=== PATIENT | female | born 1955 | race Caucasian/White ===

== ENCOUNTER 2017-10-13 20:13 | Emergency (ER) | payer SELFPAY ==
[~2017-10-13] VITALS: Ht 167.6 cm; Wt 72.6 kg
--- NOTE | 2017-10-13 20:35 | NUR ---
DR. NERI IS AT THE BEDSIDE SPEAKING TO THE PT.
--- NOTE | 2017-10-13 20:43 | NUR ---
CALLED LAB FOR BLOOD DRAW.
--- NOTE | 2017-10-13 20:56 | NUR ---
CXR NOW IN PROGRESS
--- NOTE | 2017-10-13 20:56 | NUR ---
BLOOD DRAW IN PROGRESS AT THE BEDSIDE. URINE SAMPLE OBTAINED.
[2017-10-13 21:00] LABS: BASOPHILS # (AUTO) 0.1 /CMM (0.0-0.2); BASOPHILS % (AUTO) 0.9 % (0.0-2.0); EOSINOPHILS # (AUTO) 0.2 /CMM (0.0-0.7); HEMATOCRIT 39 % (33-45); HEMOGLOBIN 13.6 g/dL (11.5-14.8); LYMPHOCYTES # (AUTO) 2.4 /CMM (0.8-4.8); LYMPHOCYTES % (AUTO) 31.3 % (20.0-44.0); MEAN CORPUSCULAR HEMOGLOBIN 32 PG (26.0-33.0); MEAN CORPUSCULAR HGB CONC 35 g/dl (31.0-36.0); MEAN CORPUSCULAR VOLUME 92 fL (82-100); MONOCYTES # (AUTO) 0.5 /CMM (0.1-1.30); MONOCYTES % (AUTO) 7.1 % (2.0-12.0); NEUTROPHILS # (AUTO) 4.4 /CMM (1.8-8.9); NEUTROPHILS % (AUTO) 58.7 % (43.0-81.0); PLATELET COUNT (AUTO) 303 /CMM (150-450); RDW COEFFICIENT OF VARIATION 12.1 (11.5-15.0); RED BLOOD CELL COUNT(AUTO) 4.26 MIL/uL (4.0-5.2); WHITE BLOOD COUNT (AUTO) 7.7 K/uL (4.3-11.0)
[2017-10-13 21:20] LABS: APPEARANCE,URINE Clear (CLEAR); BILIRUBIN,URINE Negative (NEGATIVE); BLOOD, URINE Negative Ery/uL (NEGATIVE); COLOR,URINE Yellow (YELLOW); KETONES,URINE Negative (NEGATIVE); LEUKOCYTE ESTERASE ,URINE Trace (NEGATIVE); NITRITE, URINE Negative (NEGATIVE); PROTEIN,URINE Negative (NEGATIVE); UGLUCOSE Negative (NEGATIVE); UROBILINOGEN,URINE 0.2 EU/dL (0.2)
[2017-10-13 21:21] LABS: INR 0.92 (0.85-1.15)
[2017-10-13 21:38] LABS: BACTERIA,URINE Rare /HPF (None Seen); RBC,URINE 0-2 /HPF (0-2); SQUAMOUS EPITHELIAL CELL,UR Few /HPF (None Seen); WBC,URINE 0-2 /HPF (0-3)
[2017-10-13 21:42] LABS: TROPONIN I < 0.017 ng/mL (0.00-0.056)
[2017-10-13 21:46] LABS: ALANINE AMINOTRANSFERASE 48 U/L (12-78); ALBUMIN 4.1 g/dL (3.4-5.0); ALKALINE PHOSPHATASE 111 U/L (46-116); ASPARTATE AMINOTRANSFERASE 22 U/L (15-37); BILIRUBIN,DIRECT 0.1 mg/dL (0.0-0.2); BILIRUBIN,TOTAL 0.7 mg/dL (0.2-1.0); CALCIUM, SERUM 8.9 mg/dL (8.5-10.1); CARBON DIOXIDE 29 mmol/L (21-32); CHLORIDE 103 mmol/L (98-107); CREATININE 0.9 mg/dL (0.6-1.3); GLUCOSE 104 mg/dL (74-106); POTASSIUM 3.5 mmol/L (3.5-5.1); SODIUM SERUM 141 mmol/L (136-145); TOTAL PROTEIN, SERUM 7.5 g/dL (6.4-8.2); UREA NITROGEN, BLOOD 15 mg/dL (7-18)
--- NOTE | 2017-10-13 21:55 | NUR ---
PT IS C/O HEADACHE WITH BLURRED VISION. OVERHEAD LIGHT WAS TURNED OFF AND MD NOTIFIED.
--- NOTE | 2017-10-13 22:40 | NUR ---
Patient discharged to home in stable condition. Written and verbal after care instructions given. Patient verbalizes understanding of instruction AND RX. PT'S SON IS DRIVING PT HOME. VSS. PT AMBULATED OUT WITH A STEADY GAIT. PT REC'D A COPY OF ALL LABS, IMAGING, AND EKG.
[2017-10-13 22:42] VITALS: BP 150/85
== END 2017-10-13 22:43 | disposition home or self-care (01) ==
LOC: ER 20:15
DX: R07.89 Other chest pain (principal); I10 Essential (primary) hypertension; Z86.19 Personal history of other infectious and parasitic diseases; Z88.1 Allergy status to other antibiotic agents; I34.1 Nonrheumatic mitral (valve) prolapse
CPT/HCPCS: 36415; 71045-TC; 80048-TC; 80076-TC; 81000-TC; 84484-TC; 85025-TC; 85730-TC; A4606; Z7610

== ENCOUNTER 2017-10-20 06:21 | Emergency (ER) | payer SELFPAY ==
[~2017-10-20] VITALS: Ht 167.6 cm; Wt 72.6 kg
--- NOTE | 2017-10-20 06:51 | NUR ---
62 YO MALE BB SELF. APTIENT IS ALERT AND ORIENTED X 3, C/O NAUSEA, GENERALIZED WEAKNESS ON AND OFF X 1 MONJTH. PATIENT AMBULATED TO ER BED, SKIN WARM AND DRY, RESP EVEN AND UNLABORED. PATIENT PLACED ON SHIFT COORDINATOR. AWAITING ORDERS FROM PROVIDER
[2017-10-20] MEDS ORDERED: IV NS 0.9% 500 ML BAG IV ONE (07:00)
--- NOTE | 2017-10-20 07:00 | NUR ---
STARTED A SALINE LOCK ON THE LAC G20, BLOOD DRAWN AND SENT TO LAB.
[2017-10-20 07:08] LABS: BASOPHILS % (AUTO) 0.5 % (0.0-2.0); EOSINOPHILS % (AUTO) 2.9 % (0.0-6.0); HEMATOCRIT 39 % (33-45); HEMOGLOBIN 13.8 g/dL (11.5-14.8); LYMPHOCYTES # (AUTO) 2.5 /CMM (0.8-4.8); LYMPHOCYTES % (AUTO) 43.5 % (20.0-44.0); MEAN CORPUSCULAR HGB CONC 35 g/dl (31.0-36.0); MEAN CORPUSCULAR VOLUME 92 fL (82-100); MONOCYTES # (AUTO) 0.5 /CMM (0.1-1.30); MONOCYTES % (AUTO) 9.2 % (2.0-12.0); NEUTROPHILS # (AUTO) 2.5 /CMM (1.8-8.9); NEUTROPHILS % (AUTO) 43.9 % (43.0-81.0); PLATELET COUNT (AUTO) 333 /CMM (150-450); RDW COEFFICIENT OF VARIATION 12.3 (11.5-15.0); RED BLOOD CELL COUNT(AUTO) 4.23 MIL/uL (4.0-5.2); WHITE BLOOD COUNT (AUTO) 5.6 K/uL (4.3-11.0)
[2017-10-20 07:25] LABS: BILIRUBIN,DIRECT 0.3 mg/dL (0.0-0.2); CALCIUM, SERUM 8.8 mg/dL (8.5-10.1); CREATININE 0.7 mg/dL (0.6-1.3); POTASSIUM 3.4 mmol/L (3.5-5.1); TOTAL PROTEIN, SERUM 7.6 g/dL (6.4-8.2)
--- NOTE | 2017-10-20 07:45 | NUR ---
PATIENT AMBULATES THE HALLWAY WITH STABLE GAIT. DR PAGAN MADE AWARE.
[2017-10-20 08:38] LABS: APPEARANCE,URINE SL CLOUDY (CLEAR); BILIRUBIN,URINE NEGATIVE (NEGATIVE); BLOOD, URINE NEGATIVE Ery/uL (NEGATIVE); COLOR,URINE YELLOW (YELLOW); KETONES,URINE NEGATIVE (NEGATIVE); LEUKOCYTE ESTERASE ,URINE 1+ (NEGATIVE); NITRITE, URINE NEGATIVE (NEGATIVE); PH,URINE 7.5 (5.0-8.0); PROTEIN,URINE NEGATIVE (NEGATIVE); UGLUCOSE NEGATIVE (NEGATIVE); UROBILINOGEN,URINE 0.2 EU/dL (0.2)
--- NOTE | 2017-10-20 08:58 | NUR ---
PATIENT AMBULATES THE HALLWAY WITH STABLE GAIT. VSS.
[2017-10-20 08:59] LABS: RBC,URINE 0-2 /HPF (0-2)
[2017-10-20 09:00] LABS: BACTERIA,URINE Rare /HPF (None Seen)
[2017-10-20 09:01] LABS: SQUAMOUS EPITHELIAL CELL,UR Moderate /HPF (None Seen)
[2017-10-20 09:02] VITALS: BP 130/80
--- NOTE | 2017-10-20 09:04 | NUR ---
IV removed. Catheter intact and site benign. Pressure and 4x4 applied to site. No bleeding noted.Patient discharged to home in stable condition. Written and verbal after care instructions given. Patient verbalizes understanding of instruction.
== END 2017-10-20 09:07 | disposition home or self-care (01) ==
LOC: ER 06:24
DX: R53.1 Weakness (principal); R11.0 Nausea; I10 Essential (primary) hypertension; Z88.1 Allergy status to other antibiotic agents
CPT/HCPCS: 36415; 80048-TC; 80076-TC; 81000-TC; 85025-TC; 87086-TC; 87186-TC; A4606; Z7610

== ENCOUNTER 2017-11-14 15:27 | Emergency (ER) | payer OTHER ==
[~2017-11-14] VITALS: Ht 167.6 cm; Wt 72.6 kg
[2017-11-14 15:27] VITALS: BP 139/77
[2017-11-14] MEDS ORDERED: diphenhydrAMINE HCL 25 MG CAPSULE ONE (16:22)
[2017-11-14] MEDS ORDERED: FAMOTIDINE (20 MG) 20 MG TABLET ONE (16:22)
[2017-11-14] MEDS ORDERED: diphenhydrAMINE HCL ELIX 25 MG/10 ML UDC PO ONE (16:30)
[2017-11-14] MEDS ORDERED: diphenhydrAMINE HCL 25 MG CAPSULE PO ONE (16:30)
[2017-11-14] MEDS ORDERED: FAMOTIDINE (20 MG) 20 MG TABLET PO ONE (16:30)
== END 2017-11-14 16:46 | disposition home or self-care (01) ==
LOC: ER 15:28
DX: Z77.098 Contact with and (suspected) exposure to other hazardous, chiefly nonmedicinal, chemicals (principal); I10 Essential (primary) hypertension; I34.1 Nonrheumatic mitral (valve) prolapse; G04.91 Myelitis, unspecified; Z88.1 Allergy status to other antibiotic agents; Z86.19 Personal history of other infectious and parasitic diseases
CPT/HCPCS: 99283; Q0163; Z7610; A4606

== ENCOUNTER 2019-04-11 17:26 | Emergency (ER) | payer BC, OTHER ==
[~2019-04-11] VITALS: Ht 167.6 cm; Wt 70.3 kg
[2019-04-11] MEDS ORDERED: IV NS 0.9% 1,000 ML BAG IV ONE (18:00)
[2019-04-11] MEDS ORDERED: ONDANSETRON HCL/PF 4 MG/2 ML VIAL ONE (18:01)
[2019-04-11 18:04] LABS: BASOPHILS % (AUTO) 0.8 % (0.0-2.0); EOSINOPHILS % (AUTO) 3.8 % (0.0-6.0); HEMATOCRIT 41 % (33-45); LYMPHOCYTES # (AUTO) 1.8 /CMM (0.8-4.8); LYMPHOCYTES % (AUTO) 37.2 % (20.0-44.0); MEAN CORPUSCULAR HGB CONC 34 g/dl (31.0-36.0); MEAN CORPUSCULAR VOLUME 97 fL (82-100); MONOCYTES # (AUTO) 0.3 /CMM (0.1-1.30); MONOCYTES % (AUTO) 7.3 % (2.0-12.0); NEUTROPHILS # (AUTO) 2.4 /CMM (1.8-8.9); NEUTROPHILS % (AUTO) 50.9 % (43.0-81.0); PLATELET COUNT (AUTO) 313 /CMM (150-450); RED BLOOD CELL COUNT(AUTO) 4.24 MIL/uL (4.0-5.2); WHITE BLOOD COUNT (AUTO) 4.8 K/uL (4.3-11.0)
[2019-04-11] MEDS: ONDANSETRON HCL/PF 4 MG/2 ML VIAL IVP ONE ×2 (18:04→18:30)
--- NOTE | 2019-04-11 18:05 | NUR ---
DIZZINESS, NAUSEA ABDOMINAL BLOATING SINCE STOPPING MS MEDS. "AUBAGIO" LAST FRIDAY. PT AAOX4, VSS. RR EVEN & UNLABORED. DENIES CP, SOB, WEAKNESS @ THIS TIME. PT SEEN & EVAL'D BY DR. LIN. REFUSED DANE @ THIS TIME, ERMD AWARE. WILL CONT TO MONITOR.
[2019-04-11 18:23] LABS: ALBUMIN 3.9 g/dL (3.4-5.0); BILIRUBIN,DIRECT 0.2 mg/dL (0.0-0.2); BILIRUBIN,TOTAL 1.2 mg/dL (0.2-1.0); CALCIUM, SERUM 8.2 mg/dL (8.5-10.1); CREATININE 0.9 mg/dL (0.6-1.3); POTASSIUM 3.5 mmol/L (3.5-5.1); TOTAL PROTEIN, SERUM 7.4 g/dL (6.4-8.2)
--- NOTE | 2019-04-11 18:30 | NUR ---
MEDICATED FOR NAUSEA. PT SOFÍA WELL.
[2019-04-11] MEDS ORDERED: KETOROLAC TROMETHAMINE INJ 30 MG/ML VIAL ONE (19:56)
[2019-04-11] MEDS ORDERED: KETOROLAC TROMETHAMINE INJ 30 MG/ML VIAL IV ONE (20:00)
[2019-04-11 20:38] VITALS: BP 146/67
--- NOTE | 2019-04-11 20:39 | NUR ---
Patient discharged to home in stable condition. Written and verbal after care instructions given. Patient verbalizes understanding of instruction. IV removed. Catheter intact and site benign. Pressure and 4x4 applied to site. No bleeding noted.
== END 2019-04-11 20:40 | disposition home or self-care (01) ==
LOC: ER 17:30
DX: R11.0 Nausea (principal); R42 Dizziness and giddiness; T45.0X5A Adverse effect of antiallergic and antiemetic drugs, initial encounter; G35 Multiple sclerosis; I10 Essential (primary) hypertension; I34.1 Nonrheumatic mitral (valve) prolapse; Z88.1 Allergy status to other antibiotic agents; Z88.5 Allergy status to narcotic agent; Y92.89 Other specified places as the place of occurrence of the external cause
CPT/HCPCS: 36415; 71045; 80048; 80076; 85025; 93005; 96361; 96374; 96375; 99284; J1885; J2405; J7030

== ENCOUNTER 2022-03-30 00:27 | Emergency (ER) | payer MEDICARE, BC ==
[~2022-03-30] VITALS: Ht 167.6 cm; Wt 74.4 kg
[2022-03-30 01:48] VITALS: BP 164/82
--- NOTE | 2022-03-30 02:08 | NUR ---
PT WALKED OUT AFTER TRIAGE ASSESSMENT.
== END 2022-03-30 02:20 | disposition left against medical advice (07) ==
LOC: ER 00:28
DX: Z53.21 Procedure and treatment not carried out due to patient leaving prior to being seen by health care provider (principal)